=== PATIENT | female | born 1940 | race Caucasian/White ===

== ENCOUNTER → 2016-11-23 | Outpatient (CLI) | payer OTHER, BC | LOC: BHCLAF 14:30 | PROVIDERS: ATTEND Internal Medicine Cardiovascular Disease | DX: I48.91 Unspecified atrial fibrillation (principal); E78.5 Hyperlipidemia, unspecified; I10 Essential (primary) hypertension; G47.33 Obstructive sleep apnea (adult) (pediatric) | CPT/HCPCS: 93005-PO ==

== ENCOUNTER → 2017-07-10 | Outpatient (CLI) | payer OTHER, BC | LOC: BRMIMAGING 11:11 | PROVIDERS: ATTEND Family Medicine | DX: Z12.31 Encounter for screening mammogram for malignant neoplasm of breast (principal) | CPT/HCPCS: G0202 ==

== ENCOUNTER → 2018-09-24 | Outpatient (CLI) | payer OTHER, BC | LOC: BHCLAF 09:00 | PROVIDERS: ATTEND Internal Medicine Cardiovascular Disease | DX: I48.91 Unspecified atrial fibrillation (principal); I10 Essential (primary) hypertension; E78.5 Hyperlipidemia, unspecified | CPT/HCPCS: 93005-PO ==

== ENCOUNTER → 2018-09-25 | Outpatient (CLI) | payer OTHER, BC | LOC: BRMIMAGING 07:51 | PROVIDERS: ATTEND Family Medicine | DX: Z12.31 Encounter for screening mammogram for malignant neoplasm of breast (principal) ==